=== PATIENT | female | born 1955 | race Caucasian/White ===

== ENCOUNTER 2016-12-20 07:20 | Inpatient (IN) ==
[2016-12-17 14:37] LABS: Appearance,Urine CLEAR; Bilirubin,Urine NEG (NEG); Color,Urine STRAW; Glucose,Urine (UA) NEGATIVE (NEG); Leukocyte Esterase,Urine NEG /uL (NEG); Nitrate,Urine NEG (NEG); Protein,Urine NEG (NEG); Specific Gravity,Urine 1.009 (1.000-1.035); Urine Blood NEG mg/dL (<0.03); Urobilinogen,Urine NEG (NEG)
[2016-12-17 15:15] LABS: Basophils # (Auto) 0 K/mcL (0.0-0.3); Basophils % (Auto) 0.3 % (0.0-2.0); Eosinophils # (Auto) 0.2 K/mcL (0.0-0.7); Eosinophils % (Auto) 1.9 % (0.0-7.0); Lymphocytes # (Auto) 2.2 K/mcL (1.5-4.8); Lymphocytes % (Auto) 27.8 % (15.5-49.0); Mean Cell Volume 86.6 fL (80.0-100.0); Mean Corpuscular HGB Conc 33.5 g/dL (31.0-36.0); Monocytes # (Auto) 0.6 K/mcL (0.1-0.9); Platelet Count 298 K/mcL (140-440); RBC 4.78 M/mcL (4.00-5.20); Red Cell Distribution Width 13.8 % (11.5-14.5)
[2016-12-17 15:16] LABS: Blood Urea Nitrogen 17 mg/dl (8-23)
[~2016-12-20 07:20] MED LIST: ACETAMINOPHEN 500 MG TABLET PO SCH; CELECOXIB 200 MG CAPSULE PO SCH; KETOROLAC 30 MG, ROPIVACAINE HCL/PF 49.5 ML, EPINEPHrine 0.5 MG, 0.9 % SODIUM CHLORIDE ... IJ SCH; PREGABALIN 75 MG CAPSULE PO SCH; ceFAZolin 1 GM VIAL IV SCH; oxyCODONE 10 MG TAB.ER.12H PO SCH
[2016-12-20] MEDS ORDERED: TRANEXAMIC ACID 1,000 MG/10 ML VIAL IV ONE ×3 (11:05→14:16)
[2016-12-20] MEDS ORDERED: PHENYLEPHRINE 10 MG/ML VIAL IV ONE (11:05)
[2016-12-20] MEDS ORDERED: DEXAMETHASONE 10 MG/ML VIAL IV ONE (11:05)
[2016-12-20] MEDS ORDERED: ONDANSETRON 4 MG/2 ML VIAL IV ONE (11:05)
[2016-12-20] MEDS ORDERED: MIDAZOLAM 5 MG/5 ML VIAL IV ONE (11:05)
[2016-12-20] MEDS ORDERED: ePHEDrine 50 MG/ML AMPUL IV ONE (11:05)
[2016-12-20] MEDS ORDERED: LIDOCAINE HCL/PF 100 MG/5 ML SYRINGE IV ONE (11:05)
[2016-12-20] MEDS ORDERED: PROPOFOL 200 MG/20 ML VIAL IV ONE (11:05)
[2016-12-20] MEDS ORDERED: ROPIVACAINE HCL/PF 20 ML VIAL IJ ONE (11:05)
[2016-12-20] MEDS ORDERED: GENTAMICIN SULFATE 800 MG/20 ML VIAL IR ONE (11:26)
[2016-12-20] MEDS ORDERED: ONDANSETRON 4 MG/2 ML VIAL IV PRN ×2 (12:33→14:16)
[2016-12-20] MEDS ORDERED: diphenhydrAMINE 50 MG/ML VIAL IV PRN (12:33)
[2016-12-20] MEDS ORDERED: METHOCARBAMOL 1,000 MG/10 ML VIAL IV PRN (12:33)
[2016-12-20] MEDS ORDERED: FLUMAZENIL 0.1 MG/ML ML IV PRN (12:33)
[2016-12-20] MEDS ORDERED: IPRATROPIUM/ALBUTEROL 3 ML AMPUL.NEB NEB PRN (12:33)
[2016-12-20] MEDS ORDERED: BENZOCAINE/MENTHOL 1 LOZENGE PO PRN ×2 (12:33→14:16)
[2016-12-20] MEDS ORDERED: HYDROmorphone 2 MG/ML SYRINGE IV PRN ×2 (12:33→14:16)
[2016-12-20] MEDS ORDERED: NALOXONE HCL 0.4 MG/ML VIAL IV PRN (12:33)
[2016-12-20] MEDS ORDERED: LACTATED RINGERS 250 ML IV PRN (12:33)
[2016-12-20] MEDS ORDERED: LACTATED RINGERS 1,000 ML IV SCH (12:45)
[2016-12-20] MEDS: fentaNYL 100 MCG/2 ML VIAL IV PRN ×4 (13:18→13:33)
--- NOTE | 2016-12-20 13:51 | XRay Report ---
CLINICAL INFORMATION: Postop knee prostheses COMPARISON: None. FINDINGS: Total knee prostheses is anatomically aligned. No osseous abnormality. Periarticular gas and soft tissue swelling seen - as expected IMPRESSION: Negative Interpreted and Authenticated by: Jamey Atkinson 12/20/16
[2016-12-20] MEDS ORDERED: FLEETS ADULT ENEMA PR PRN (14:16)
[2016-12-20] MEDS ORDERED: POLYETHYLENE GLYCOL 3350 17 GM PACKET PO PRN (14:16)
[2016-12-20] MEDS ORDERED: MAGNESIUM HYDROXIDE 30 ML ORAL.SUSP PO PRN (14:16)
[2016-12-20] MEDS ORDERED: ACETAMINOPHEN 325 MG TABLET PO PRN (14:16)
[2016-12-20] MEDS ORDERED: BISACODYL 10 MG SUPP.RECT PR PRN (14:16)
[2016-12-20] MEDS ORDERED: TEMAZEPAM 15 MG CAPSULE PO PRN (14:16)
[2016-12-20] MEDS ORDERED: PSEUDOEPHEDRINE 30 MG TABLET PO PRN (14:18)
--- NOTE | 2016-12-20 14:20 | Brief Operative Note ---
Date of procedure: 12/20/16 Pre-op diagnosis: Left knee djd severe Post-op diagnosis: same Procedure: left tka Grafts/Implants: Yes Anesthesia: VIKAS Surgeon: Jelani Navarro Electron Gun Inspector: Wilian Harding Estimated blood loss (cc): 20 Tourniquet Time (Minutes): 45 Specimens Removed/Pathology: none sent Condition: stable Disposition: PACU
[2016-12-20] MEDS ORDERED: VITAMIN D3 5,000 UNIT CAPSULE PO SCH (14:30)
[2016-12-20] MEDS: HYDROcodone/APAP 10/325MG TABLET PO PRN ×3 (15:28→22:41)
[2016-12-20] MEDS: 0.45 % SODIUM CHLORIDE 1,000 ML IV SCH ×2 (15:29→22:43)
[2016-12-20] MEDS: ceFAZolin 1 GM VIAL IV SCH (19:36)
[2016-12-20] MEDS: KETOROLAC 15 MG/ML VIAL IV SCH (20:47)
[2016-12-20] MEDS ORDERED: SENNOSIDES 1 TABLET PO SCH (21:00)
[2016-12-20] MEDS ORDERED: MAGNESIUM OXIDE 400 MG TABLET PO SCH (21:00)
[2016-12-20] MEDS: ASPIRIN 325 MG ENTERIC COATED TABLET PO SCH (21:06)
[2016-12-20] MEDS: DOCUSATE SODIUM 100 MG CAPSULE PO SCH (21:38)
[2016-12-20] MEDS: 0.9 % SODIUM CHLORIDE 10 ML SYRINGE IV SCH (23:42)
[2016-12-21] MEDS: KETOROLAC 15 MG/ML VIAL IV SCH ×3 (00:14→11:23)
[2016-12-21] MEDS: ceFAZolin 1 GM VIAL IV SCH (02:17)
[2016-12-21] MEDS: 0.9 % SODIUM CHLORIDE 10 ML SYRINGE IV SCH (05:31)
--- NOTE | 2016-12-21 07:28 | Orthopedic Progress Note ---
Subjective Patient information: Note initiated : 12/21/16 at 7:26 am Service Date, if different from initiated Date: [] Patient: Lynne Peng 61 y/o F admitted on 12/20/16 for Lt Total Knee Arthroplasty w/ Peroneal *!parimutuel clerk!*. Chief Complaint: [Doing well and is with minimal pain] Objective Vital signs: Vital Signs Temp Pulse Resp BP BP Pulse Ox 12/21/16 07:11 97.9 F 16 108/68 93 12/21/16 04:00 98.3 F 72 14 132/71 94 12/21/16 01:58 93 12/21/16 00:00 98.7 F 83 14 129/69 93 12/20/16 20:00 98.3 F 90 16 145/70 94 12/20/16 16:20 16 142/76 94 12/20/16 16:05 16 130/88 94 12/20/16 15:50 16 123/78 94 12/20/16 15:35 16 130/84 94 12/20/16 15:20 16 138/83 96 12/20/16 15:05 16 134/86 97 12/20/16 14:50 16 133/82 96 12/20/16 14:35 16 133/82 97 12/20/16 14:20 16 129/80 98 12/20/16 14:17 96 12/20/16 14:05 97.8 F 16 138/85 99 12/20/16 14:00 96 12/20/16 13:52 97.7 F 88 16 127/71 98 12/20/16 13:15 86 15 140/78 96 12/20/16 13:00 98.4 F 82 20 142/72 95 12/20/16 12:41 98.5 F 88 12 135/65 96 Intake and Output 12/20/16 12/21/16 12/21/16 21:59 05:59 13:59 Intake Total 100 / 100 1023 / 1023 Output Total 1026 / 1026 600 / 600 Balance -926 / -926 423 / 423 Intake: IV 723 / 723 Sodium Chloride 0.45% 1, 723 / 723 000 ml @ 100 mls/hr IV . Q10H CHAVO Rx#:[id number] Oral 100 / 100 300 / 300 Output: Void Amount 1025 / 1025 600 / 600 # of times incontinent of 1 / 1 urine Other: Meal Dinner Percent of Meal Consumed 100% Weight 264 lb 8 oz Intake & Output: Intake & Output 12/20/16 12/21/16 12/21/16 21:59 05:59 13:59 Intake Total 100 / 100 1023 / 1023 Output Total 1026 / 1026 600 / 600 Balance -926 / -926 423 / 423 Weight 264 lb 8 oz Intake: IV 723 / 723 Sodium Chloride 0.45% 1, 723 / 723 000 ml @ 100 mls/hr IV . Q10H CHAVO Rx#:[id number] Oral 100 / 100 300 / 300 Output: Void Amount 1025 / 1025 600 / 600 # of times incontinent of 1 / 1 urine Other: Meal Dinner Percent of Meal Consumed 100% Incision: Yes healing Incision clean and dry: Yes Dressing: Yes clean Weight bearing status: full Neurological exam IM: Yes oriented X3, Yes neurovascular intact Extremities exam IM: Yes Foot pink and warm (will need a cpm for home use times 21 days), Yes neurovascular intact - Labs CBC & BMP: 12/21/16 05:35 12/17/16 12:23 Labs: Orthopedic Labs 12/17/16 12:23 PT 13.7 INR 1.0 APTT 30 12/21/16 12/17/16 05:35 12:23 Hgb 13.9 Hct 36.4 41.4
--- NOTE | 2016-12-21 07:30 | Discharge Summary ---
Ortho Discharge - TKA - Patient Instructions Diet: Regular Diet Activity: activity as tolerated, weight bearing as tolerated Total Knee Protocol: For Total Knee: Start ROM ROQUE with stationary bike or rocking chair. Work on gaining full extension of knee. Posterior dislocation precautions provided. Hip abductor strengthening and gait training instructions provided. Apply Cryocuff as instructed. Dressing Care: Aquacel Ag - leave on for 5 days Patient Education: Total Knee Replacement (DC) Additional Instructions: CPM for home use. - Follow Up Plan Follow Up Appointments: Jelani Navarro MD [Physician] - 01/04/17 1:10 pm Disposition: Home, Self-Care Prognosis: Good Rehab Potential: Good I certify that the patient requires SNF services: Yes Overall status at discharge: patient is progressing back to baseline - Orders For Discharge Additional Discharge Orders: Physical Therapy at Discharge - TKA Location: Determined By Patient CPM Discharge Order Location: Determined By Patient Toilet Riser Discharge Order Location: Determined By Patient Walker Location: Determined By Patient
[2016-12-21] MEDS: ASPIRIN 325 MG ENTERIC COATED TABLET PO SCH (12:01)
[2016-12-21] MEDS: DOCUSATE SODIUM 100 MG CAPSULE PO SCH (12:02)
--- NOTE | 2016-12-24 14:13 | Operative Note ---
DATE OF OPERATION: 12/20/2016 PREOPERATIVE DIAGNOSIS: Left knee severe degenerative arthritis in all three compartments. POSTOPERATIVE DIAGNOSIS: Left knee severe degenerative arthritis in all three compartments. PROCEDURE: 1. Left total knee arthroplasty with ODC components, grafts and implants. 2. Peroneal nerve release because of malaligned leg. ANESTHESIA: General LMA. SURGEON: Darryn Navarro MD INTERN: Wilian Harding PA-C ESTIMATED BLOOD LOSS: 20 mL TOURNIQUET TIME: 45 minutes. SPECIMENS REMOVED: None. CONDITION: Stable. DISPOSITION: None. IMPLANTS: ODC total knee arthroplasty with 12 mm poly. PROCEDURE IN DETAIL: The patient was brought to the operating room and was put to sleep with general LMA anesthesia. Once asleep, the patient had the left leg sterilely prepped and draped in the usual fashion. Once sterilely prepped, we confirmed the left leg as the operative side. A midline incision was made, a mid vastus approach performed. Through this we placed a total knee arthroplasty cemented femoral component, cemented tibial component, 12 mm poly. After making the bone cuts with intramedullary guide elvis, the distal femoral cut was made. At 9 mm in thickness, I sized the femur to size 3 mid anterior and posterior chamfer cuts removing large osteophytes medially and laterally. A box cut was made for the three components. We then prepared the tibia, ____ and remove pre C image, medullary guide elvis into the tibia. We made a cut 8 mm below the medial compartment, which was the least involved area. I made this cut removing the meniscus medially and laterally and removing the bony fragments. We injected the posterior capsule with 50 mL of post-inject formula. We irrigated thoroughly and then trialed with size 4 tibial baseplate, which fit very well. Rotation was set according to the patient's anatomy. Once this was done, the size 3 femoral component was placed, size 4 tibial base plate and trialed a 9, 11 and 12. The 12 seemed to be the most appropriate to balance all ligaments in flexion and extension to 1 mm of tension. We irrigated thoroughly and prepared the patella measuring 22 mm in total thickness. This was cut to 13 mm and then cemented into place a patellar component to recreate thickness and cover as much bone as possible. Once this was done, a small spur on the patella was removed with a rongeur and then we trialed all components. Once we were the extremities were the appropriate size, we cemented into place a __ base plate, size 3 femur, patellar button and then a 12 mm poly insert with posterior stabilized ___. Once this was done, we irrigated thoroughly. We deflated the tourniquet at approximately 45 minutes and closed the mid vastus approach with Stratafix, and closed the skin with 2-0 Vicryl and lucian. At this point I proceed with a peroneal nerve release of the left leg. A 2 inch incision was made and released the peroneal nerve and the pressure from the peroneal nerve proximal and distal. The nerve root was kept intact. We irrigated and then closed the skin with 0 Vicryl and then 2-0 Vicryl, and then lucian. Patient tolerated this well. There were no complications. RBH:gela Job ID: [id number] Doc ID: [id number] Jelani Navarro MD
== END 2016-12-21 12:05 | disposition home or self-care (01) | DRG 470 ==
LOC: MEDSUR 07:20
PROVIDERS: ADMIT Orthopaedic Surgery; ATTEND Orthopaedic Surgery